=== PATIENT | female | born 1995 | race African-American/Black ===

== ENCOUNTER 2025-08-10 21:52 | Emergency (ER) | payer BC ==
[~2025-08-10] VITALS: Ht 167.6 cm; Wt 68.0 kg
[2025-08-10 22:02] VITALS: O2SAT 100
[2025-08-10 22:56] LABS: COLOR URINE YELLOW (YELLOW); GLUCOSE URINE NEGATIVE (NEGATIVE); KETONES URINE 1+ (NEGATIVE); LEUKOCYTE ESTERASE URINE 2+ (NEGATIVE); NITRITE URINE NEGATIVE (NEGATIVE); OCCULT BLOOD URINE 3+ (NEGATIVE); PH URINE 8.0 (4.5-8.0); PROTEIN URINE TRACE (NEGATIVE); SPECIFIC GRAVITY URINE 1.011 (1.005-1.030); UROBILINOGEN URINE 1.0 E.U./dL (0.2-1.0)
[2025-08-10 23:01] LABS: BASOPHILS % 0.5 % (0.0-2.0); EOSINOPHILS % 0.2 % (0.0-5.0); HEMATOCRIT. 30.3 % (36.0-48.0); HEMOGLOBIN. 9.6 g/dL (12.0-16.0); LYMPHOCYTES % 17.3 % (20.0-50.0); MEAN PLATELET VOLUME 9.4 fl (7.4-10.4); MONOCYTES % 9.4 % (2.0-8.0); NEUTROPHILS % 72.6 % (40.0-76.0); PLATELET 312 x1000/uL (130-400); RED BLOOD CELL COUNT 4.15 mill/uL (4.2-5.4); RED CELL DISTRIBUTION WIDTH 20.9 % (11.6-14.6)
[2025-08-10 23:14] LABS: CREATININE 0.8 mg/dL (0.6-1.0); TROPONIN I HIGH SENSITIVITY < 4 ng/L (3.0-34); UREA NITROGEN BLOOD < 5 mg/dL (9-23)
[2025-08-10 23:15] LABS: ASPARTATE AMINOTRANSFERASE 12 IU/L (<34)
[2025-08-10 23:16] LABS: BILIRUBIN DIRECT 0.3 mg/dL (<=3.0); BILIRUBIN TOTAL 0.8 mg/dL (0.1-1.0); PROTEIN TOTAL 7.6 g/dL (6.0-8.3)
[2025-08-10 23:28] LABS: CLARITY URINE HAZY (CLEAR)
[2025-08-10 23:30] LABS: BACTERIA URINE TRACE; SQUAMOUS EPITHELIAL CELL URINE FEW /lpf (RARE/1+)
[2025-08-11 00:46] LABS: HCG SCREEN NEGATIVE
[2025-08-11] MEDS ORDERED: MAG-55 MT (01:52)
[2025-08-11] MEDS ORDERED: TOPUD MT (01:52)
[2025-08-11] MEDS: KETOROLAC 15MG/ML VIAL IM ONE (01:54)
[2025-08-11] MEDS ORDERED: CEPH500C2 MT (01:54)
[2025-08-11] MEDS: POTASSIUM CHLORIDE 20MEQ/PACKET PO ONE (02:35)
[2025-08-11] MEDS: ACETAMINOPHEN 325MG TABLET PO ONE (02:38)
[2025-08-11] MEDS: DICYCLOMINE HCL 10MG CAPSULE PO ONE (02:39)
[2025-08-11] MEDS: MAGNESIUM/ALUMINUM HYDROXIDE/SIMETHICONE 30ML UDC PO ONE (02:40)
[2025-08-11 02:48] VITALS: BP 121/81; PULSE 78; RESP 17; TEMP 36.8; O2SAT 100
== END 2025-08-11 02:50 | disposition home or self-care (01) ==
LOC: ER 21:52
DX: D25.9 Leiomyoma of uterus, unspecified (principal); E87.6 Hypokalemia
CPT/HCPCS: 99285; 74176; 71045; 80076; 80048; 81003; 81025; 84703; 85025; 84484; 36415; 93005; J1885